=== PATIENT | male | born 1955 | race Caucasian/White ===

== ENCOUNTER → 2016-08-08 | Day surgery (SDC) | payer OTHER ==
[2016-08-06 12:10] LABS: PT 14.2 SEC (9.4-12.5)
[~2016-08-08] VITALS: Ht 177.8 cm; Wt 99.8 kg
[~2016-08-08] MED LIST: <VITAMIN> A + D1 APP TOP; ALENDRONATE SOD70 M1 PO; ATORVASTATIN CA20 MG PO; CARAFATE1 GM/10 ML PO; DIFLUCAN 100MG100 MG PO; JANUMET 1000 MG1 TAB PO; LIDOCAINE HCL PO; LOPRESSOR 25MG25 MG PO; LOVENOX 10100 MG/1 M SC; OXACILLIN2 G1 IV; PREDNISONE5 MG PO; TRIAMCINOL0.1 %/453 TOP; Tears Natural OPH; VITAMIN D1000 IU PO
[2016-08-08 10:02] LABS: PT 11.8 SEC (9.4-12.5)
--- NOTE | 2016-08-08 14:33 | Operative Report ---
Operative/Inv Procedure Report Surgery Date: 08/08/16 Name of Procedure: Left subclavian venogram Aborted Port-A-Cath placement Pre-Operative Diagnosis: Lymphoma Post-Operative Diagnosis: Same Estimated Blood Loss: scant Surgeon/Rug Cleaner Hand: ANTHONY MTZ,RAMIRO Robles Anesthesia: local monitored anesthesi Operative/Procedure Note Note: After consent is brought to the operating room laid supine. Sedation was obtained and his left chest was then prepped and draped. The area over the proposed port site was instilled with a cocktail local anesthesia. The subclavian vein was then continuously accessed with ultrasound guidance. There is a robust aspiration of dark venous blood. The wire could not be passed further then 10 cm. I tried to manipulate the wire under fluoroscopy but it would not cross the midline. I subsequent performed venogram through the needle and could identify the confluence of the subclavian and jugular veins. The innominate vein tapered to multiple tiny collateral vessels which then eventually opacified the right-sided venous system. At this point it was felt that a left-sided catheter could not be placed. Given his needle instrumentation of the left side I want to get an x-ray to rule out pneumothorax prior to proceeding the procedure on the right side. Additionally given his prior infection on the right side and unclear venous anatomy, I felt to be prudent to send him to interventional radiology for formal venogram to assess adequacy of his contralateral circulation. It may be that the central venous system cannot be properly accessed. CC: ALTA MTZ,MINGO Frederick
--- NOTE | 2016-08-08 14:52 | RADIOLOGY REPORT ---
EXAMINATION: XR PORTABLE CHEST CLINICAL INFORMATION: 60-year-old man with attempted left sided Port-A-Cath insertion. Evaluate for pneumothorax. COMPARISON: 06/16/2015 chest radiograph TECHNIQUE: Portable AP view of the chest was obtained. FINDINGS: Hazy nonspecific opacity is noted at the left lung base, perhaps reflecting atelectasis or early consolidation. No discrete pneumothorax is seen on either side. Cardiomediastinal contours are prominent, although stable post median sternotomy. There are no large pleural effusions. IMPRESSION: No convincing radiographic evidence of a new pneumothorax. Hazy nonspecific opacity at the left lung base.
--- NOTE | 2016-08-08 16:47 | RADIOLOGY REPORT ---
EXAMINATION:\H\ \N\XR CHEST CLINICAL INFORMATION: Attempted left-sided Port-A-Cath insertion in the OR. COMPARISON: PET CT 06/12/2016. TECHNIQUE: Fluoroscopic images obtained in the OR were viewed. FINDINGS: Fluoroscopic images obtained in the OR demonstrate a partially visualized access needle within the left subclavian vein. Contrast injection shows extensive collateral flow in the neck from left to right with eventual filling of the right internal jugular and brachiocephalic veins. There are median sternotomy wires in place. Fluoroscopy time 1.7 minutes Cumulative dose 15.8 mg IMPRESSION: Refer to full OR report for full procedure details.
== END ==
LOC: STS 08-06 11:02
PROVIDERS: Surgery
DX: C83.30 Diffuse large B-cell lymphoma, unspecified site (principal); Z53.8 Procedure and treatment not carried out for other reasons; I87.8 Other specified disorders of veins; Z95.2 Presence of prosthetic heart valve; Z79.01 Long term (current) use of anticoagulants; L40.9 Psoriasis, unspecified; E78.00 Pure hypercholesterolemia, unspecified; I10 Essential (primary) hypertension; E11.9 Type 2 diabetes mellitus without complications; Z79.84 Long term (current) use of oral hypoglycemic drugs; Z87.891 Personal history of nicotine dependence
CPT/HCPCS: 36415; 93005; 93010; C1788; J0690; J1644; J2250; Q9967

== ENCOUNTER → 2017-11-28 | Day surgery (SDC) | payer OTHER ==
[~2017-11-28] VITALS: Ht 177.8 cm; Wt 97.5 kg
[~2017-11-28] MED LIST changes: +COUMADIN10 M1 PO; +JANUMET 50-1,01 EACH PO; -LOPRESSOR 25MG25 MG PO; +METOPROLOL TART25 M1 PO; +PREDNISONE5 M1 PO
--- NOTE | 2017-11-28 15:47 | Operative Report ---
See Addendum Operative/Inv Procedure Report Surgery Date: 11/28/17 Name of Procedure: Cataract extraction with intraocular lens implantation left eye Pre-Operative Diagnosis: Age-related cataract left eye Post-Operative Diagnosis: Same Estimated Blood Loss: none Surgeon/Field Staff: Basilio MTZ,Agustín Nam Anesthesia: local monitored anesthesi Complications: None Operative/Procedure Note Note: Preoperatively the patient was noted to have 20/150 vision in the left eye. The risks, benefits, and alternatives to surgery were discussed at length with the patient. Informed consent was obtained. The patient was brought to the operating room where the left eye was prepped and draped in the normal sterile fashion. A speculum was placed on the left eye with good exposure. A stab incision was made using a paracentesis blade. Intracameral lidocaine was placed. Viscoelastic was used to form the anterior chamber. A clear corneal incision was made using keratome blade. A continuous curvilinear capsulorrhexis was made using a cystotome needle followed by Utrata forceps. There was no extension of the rhexis. Hydrodissection was performed using balanced salt solution. The cataract was removed using a stop and chop technique. Residual cortex was removed using coaxial irrigation and aspiration. The capsule was polished using irrigation and aspiration and the posterior capsule was cleaned using a balanced salt solution jet. There was no residual lens material inside the eye. The capsular bag was reformed using viscoelastic. An intraocular lens PCBOO of power 20.0 was verified and confirmed. It was loaded into an injector and injected into the eye. The lens was placed entirely within the capsular bag. Viscoelastic was evacuated using irrigation and aspiration. The wounds were stromally hydrated and the eye filled to physiologic pressure using balanced salt solution. Intracameral cefuroxime was placed. Speculum was removed and a shield was placed on the eye. The patient was brought to the recovery area without incident. Instructions were given to follow-up the next day for routine postoperative care.
== END ==
LOC: STS 11-12 07:00
DX: H25.89 Other age-related cataract (principal); H57.00 Unspecified anomaly of pupillary function; E11.9 Type 2 diabetes mellitus without complications; Z79.84 Long term (current) use of oral hypoglycemic drugs; I10 Essential (primary) hypertension; R01.1 Cardiac murmur, unspecified; Z79.01 Long term (current) use of anticoagulants
CPT/HCPCS: J2001; J2250; V2632